=== PATIENT | female | born 1990 | race Caucasian/White ===

== ENCOUNTER → 2017-11-09 | Outpatient (CLI) | payer OTHER ==
[~2017-11-09] VITALS: Ht 170.2 cm; Wt 121.1 kg
[~2017-11-09] MED LIST: ADDERALL20 MG PO; AMITRIPTYLINE H10 MG PO; AZELASTINE137 MCG/0. BOTH NARES; BIRTH CONTROL PO; EFFEXOR XR75 MG PO; EXCEDRIN MIGRA1 EAC3 PO; IMITREX100 MG PO; INDERAL LA160 MG PO; LAMICTAL200 MG PO; LEXAPRO20 MG PO; NEURONTIN300 MG PO; PLAQUENIL200 MG PO; PRILOSEC20 MG PO; VYVANSE70 MG PO
== END | disposition home or self-care (01) ==
LOC: AMB 11:41
PROC: 0DB68ZX Excision of Stomach, Via Natural or Artificial Opening Endoscopic, Diagnostic (ICD-10-PCS; principal; 2017-11-09)
DX: K29.60 Other gastritis without bleeding (principal); K57.10 Diverticulosis of small intestine without perforation or abscess without bleeding; K25.9 Gastric ulcer, unspecified as acute or chronic, without hemorrhage or perforation; E66.9 Obesity, unspecified; Z68.41 Body mass index [BMI] 40.0-44.9, adult; F31.9 Bipolar disorder, unspecified; E78.5 Hyperlipidemia, unspecified; K58.9 Irritable bowel syndrome, unspecified; M35.00 Sjogren syndrome, unspecified; G47.9 Sleep disorder, unspecified; E53.8 Deficiency of other specified B group vitamins; Z82.49 Family history of ischemic heart disease and other diseases of the circulatory system; Z83.3 Family history of diabetes mellitus; Z83.49 Family history of other endocrine, nutritional and metabolic diseases; Z82.3 Family history of stroke; Z81.1 Family history of alcohol abuse and dependence; Z87.891 Personal history of nicotine dependence
CPT/HCPCS: 88305; 88342 TC